=== PATIENT | male | born 2005 | race Caucasian/White ===

== ENCOUNTER 2024-06-29 17:49 | Emergency (ER) | payer BC ==
[2024-06-29 19:22] LABS: APPEARANCE,URINE CLEAR (Clear); BILIRUBIN,URINE NEGATIVE (Negative); COLOR,URINE YELLOW (Yellow); GLUCOSE,URINE NEGATIVE (Negative); KETONES,URINE NEGATIVE (Negative); LEUKOCYTE ESTERASE,URINE NEGATIVE (Negative); NITRITE,URINE NEGATIVE (Negative); OCCULT BLOOD,URINE NEGATIVE (Negative); PROTEIN,URINE NEGATIVE (Negative); UROBILINOGEN,URINE 0.2 (0.2-1.0)
[2024-06-29 20:32] LABS: C. TRACHOMATIS BY PCR NOT DETECTED; N. GONORRHOEAE BY PCR NOT DETECTED
== END 2024-06-29 20:40 | disposition home or self-care (01) ==
LOC: JD.ED 17:49
DX: N50.812 Left testicular pain (principal); Z86.16 Personal history of COVID-19; Z88.1 Allergy status to other antibiotic agents
CPT/HCPCS: 76870; 76870-26; 81003; 87491; 87591; 93975; 99282; 99284